=== PATIENT | female | born 1950 | race Caucasian/White ===

== ENCOUNTER → 2021-01-06 | Outpatient (CLI) | payer MEDICARE ==
--- NOTE | 2021-01-06 10:49 | BD ---
EXAMINATION TYPE: Axial Bone Density DATE OF EXAM: 01/06/2021 COMPARISON: NONE CLINICAL HISTORY: Postmenopausal female. Other disorder of bone density. Height: 5 FT 3 1/2 IN Weight: 193 FRAX RISK QUESTIONS: Alcohol (3 or more units per day): NO Family History (Parent hip fracture): YES Glucocorticoids (More than 3mos): UNSURE (Ex: prednisone, prednisolone, methylprednisolone, dexamethasone, and hydrocortisone). History of Fracture in Adulthood: NO Secondary Osteoporosis: 1. Type 1 Diabetes: NO 2. Hyperthyroidism: NO 3. Menopause before 45: NO 4. Malnutrition: NO 5. Chronic liver disease: NO Rheumatoid Arthritis: NO Current Tobacco Use: NO RISK FACTORS HISTORY OF: Surgery to Spine/Hip(right/left)/Wrist (right/left): NO Family History of Osteoporosis: NO Active: YES Diet low in dairy products/other sources of calcium: NO Postmenopausal woman: AGE 49 Take estrogen and/or progesterone medications: NO Lost more than 2 inches in height since high school: NO MEDICATIONS: Additional Medications: HYDROCHLORTHIAZIDE, LOSARTAN, MESALAMINE Additional History: EXAM MEASUREMENTS: Bone mineral densitometry was performed using the [employer] System. Bone mineral density as measured about the Lumbar spine is: ----- L1-L4(G/cm2): 1.249 T Score Values are as follows: ----- L2: -0.2 ----- L3: 1.3 ----- L4: 1.8 ----- L1-L4: 0.6 BASELINE Bone mineral density about the R hip (g/cm2): 0.895 Bone mineral density about the L hip (g/cm2): 0.986 T Score values are as follows: -----R Neck: -1.0 -----L Neck: -0.4 -----R Total: -1.1 -----L Total: -0.5 BASELINE IMPRESSION: Osteopenia (T Score between -2.5 and -1). There is slightly increased risk of fracture and the patient may be considered for treatment. Re-Screen 2-5 years. NOTE: T-SCORE=SD OF THE YOUNG ADULT MEAN.
--- NOTE | 2021-01-07 10:34 | MM ---
Reason for exam: screening (asymptomatic). Last mammogram was performed 5 years and 7 months ago. History: Patient is postmenopausal. Family history of breast cancer in mother. Took hormonal contraceptives for 7 years. Physical Findings: A clinical breast exam by your physician is recommended on an annual basis and results should be correlated with mammographic findings. MG 3D Screening Mammo W/Cad Bilateral CC and MLO view(s) were taken. Prior study comparison: June 09, 2015, mammogram, performed at [facility]. There are scattered fibroglandular densities. There is no discrete abnormality. No significant changes when compared with prior studies. ASSESSMENT: Negative, BI-RAD 1 RECOMMENDATION: Routine screening mammogram of both breasts in 1 year.
== END | disposition home or self-care (01) ==
LOC: RADMAMWWP 09:31
PROVIDERS: ATTEND Family Medicine
DX: M85.89 Other specified disorders of bone density and structure, multiple sites (principal); Z12.31 Encounter for screening mammogram for malignant neoplasm of breast; Z78.0 Asymptomatic menopausal state; Z80.3 Family history of malignant neoplasm of breast
CPT/HCPCS: 77063; 77067; 77080

== ENCOUNTER → 2022-03-08 | Outpatient (CLI) | payer MEDICARE ==
--- NOTE | 2022-03-09 08:19 | MM ---
Reason for Exam: Screening (asymptomatic). Last mammogram was performed 1 year(s) and 2 month(s) ago. Patient History: Menarche at age 14. First Full-Term at age 18. Postmenopausal. Patient used Hormonal Contraceptives for 7 years. Mother had breast cancer. Risk Values: Disha 5 year model risk: 3.0%. NCI Lifetime model risk: 8.1%. Prior Study Comparison: 03/23/1999 Bilateral Screening Mammogram, [facility]. 06/09/2015 Screening Mammogram, [facility] . 01/06/2021 Bilateral Screening Mammogram, [facility]. Tissue Density: There are scattered fibroglandular densities. Findings: Analyzed By CAD. There is no suspicious group of microcalcifications in either breast. No new suspicious mass of the left breast. 5 mm asymmetry demonstrated within the central right breast at anterior depth. Chronic nodularity within the left breast. Overall Assessment: Incomplete: need additional imaging evaluation, BI-RAD 0 Management: Diagnostic Mammogram of the right breast. A clinical breast exam by your physician is recommended on an annual basis and results should be correlated with mammographic findings. [facility] will attempt to contact patient to return for supplemental views and ultrasound if indicated. Electronically signed and approved by: Franck Navarro D.O.
== END | disposition home or self-care (01) ==
LOC: RADMAMWWP 15:02
PROVIDERS: ATTEND Family Medicine
DX: Z12.31 Encounter for screening mammogram for malignant neoplasm of breast (principal); Z78.0 Asymptomatic menopausal state; Z80.3 Family history of malignant neoplasm of breast
CPT/HCPCS: 77063; 77067

== ENCOUNTER → 2022-03-12 | Outpatient (CLI) | payer MEDICARE ==
--- NOTE | 2022-03-12 10:39 | MM ---
Reason for Exam: Additional evaluation requested from prior study. Last screening mammogram was performed less than 1 month ago. Patient History: Menarche at age 14. First Full-Term at age 18. Postmenopausal. Patient used Hormonal Contraceptives for 7 years. Mother had breast cancer. Risk Values: Disha 5 year model risk: 3.0%. NCI Lifetime model risk: 8.1%. Tissue Density: Right: There are scattered fibroglandular densities. Findings: Analyzed By CAD. Persistent 5 mm high density round mass 3 cm from the nipple. It is at anterior depth centrally on the CC view and superiorly on the MLO view. Demonstrates circumscribed origins. Overall Assessment: Incomplete: need additional imaging evaluation, BI-RAD 0 Management: Diagnostic Breast Ultrasound of the right breast. A clinical breast exam by your physician is recommended on an annual basis and results should be correlated with mammographic findings. This exam should not preclude additional follow-up of suspicious palpable abnormalities. Results were given to the patient verbally at the time of exam. Electronically signed and approved by: Franck Navarro D.O.
--- NOTE | 2022-03-12 10:55 | USB ---
Reason for Exam: Additional evaluation requested from abnormal screening. Patient History: Menarche at age 14. First Full-Term at age 18. Postmenopausal. Patient used Hormonal Contraceptives for 7 years. Mother had breast cancer. Risk Values: Disha 5 year model risk: 3.0%. NCI Lifetime model risk: 8.1%. Technique: Method: Targeted. Prior Study Comparison: 06/09/2015 Screening Mammogram, [facility] . 01/06/2021 Bilateral Screening Mammogram, [facility]. 03/08/2022 Bilateral MG 3D screening mammo w/cad, [facility]. Findings: The upper section of the breast of the right breast, the axilla of the right breast and the retroareolar of the right breast were scanned. Targeted ultrasound of the right breast at 12:00 with additional evaluation of the nipple region and axilla was performed. There is a ovoid anechoic mass with posterior acoustic enhancement in the right breast at 12:00 3 cm of the nipple measuring up to 4 mm consistent with a cyst. No internal vascularity identified.. Overall Assessment: Benign, BI-RAD 2 Management: Screening Mammogram of both breasts in 1 year. A clinical breast exam by your physician is recommended on an annual basis and results should be correlated with mammographic findings. This exam should not preclude additional follow-up of suspicious palpable abnormalities. Results were given to the patient verbally at the time of exam. Electronically signed and approved by: Franck Navarro D.O.
== END | disposition home or self-care (01) ==
LOC: RADMAMWWP 10:07
PROVIDERS: ATTEND Family Medicine
DX: R92.8 Other abnormal and inconclusive findings on diagnostic imaging of breast (principal); Z78.0 Asymptomatic menopausal state; Z80.3 Family history of malignant neoplasm of breast
CPT/HCPCS: 77065; 76642; G0279; 77061

== ENCOUNTER → 2023-04-20 | Outpatient (CLI) | payer MEDICARE ==
--- NOTE | 2023-04-21 08:43 | MM ---
Reason for Exam: Screening (asymptomatic). Last mammogram was performed 1 year(s) and 2 month(s) ago. Patient History: Menarche at age 14. First Full-Term at age 18. Postmenopausal. Patient used Hormonal Contraceptives for 7 years. Mother had breast cancer. Risk Values: Dihsa 5 year model risk: 3.0%. NCI Lifetime model risk: 7.7%. Prior Study Comparison: 01/06/2021 Bilateral Screening Mammogram, [facility]. 03/08/2022 Bilateral MG 3D screening mammo w/cad, [facility]. 03/12/2022 Right MG 3D work up w/cad RT, [facility]. Tissue Density: There are scattered fibroglandular densities. Findings: Analyzed By CAD. There is no suspicious group of microcalcifications or new suspicious mass in either breast. There is no suspicious group of microcalcifications or new suspicious mass in either breast. Asymmetric density in the upper outer of the margin left breast. Overall Assessment: Incomplete: need additional imaging evaluation, BI-RAD 0 Management: Special View Mammogram of the left breast. . Patient should continue monthly self-breast exams. A clinical breast exam by your physician is recommended on an annual basis. This exam should not preclude additional follow-up of suspicious palpable abnormalities. Note on Disha scores and lifetime risk: 1. A Disha score greater than 3% is considered moderate risk. If this is the case, consider specialist referral to assess eligibility for a risk reducing agent. 2. If overall lifetime risk for the development of breast cancer is 20% or higher, the patient may qualify for future screening with alternating mammogram and breast MRI. Electronically signed and approved by: Arturo Gonzalez M.D. Radiologis
== END | disposition home or self-care (01) ==
LOC: RADMAMWWP 14:02
PROVIDERS: ATTEND Family Medicine
DX: Z12.31 Encounter for screening mammogram for malignant neoplasm of breast (principal); Z80.3 Family history of malignant neoplasm of breast; Z78.0 Asymptomatic menopausal state
CPT/HCPCS: 77063; 77067

== ENCOUNTER → 2023-04-25 | Outpatient (CLI) | payer MEDICARE ==
--- NOTE | 2023-04-25 10:45 | MM ---
Reason for Exam: Additional evaluation requested from abnormal screening. Last screening mammogram was performed less than 1 month ago. Patient History: Menarche at age 14. First Full-Term at age 18. Postmenopausal. Patient used Hormonal Contraceptives for 7 years. Mother had breast cancer. Risk Values: Disha 5 year model risk: 3.0%. NCI Lifetime model risk: 7.7%. Prior Study Comparison: 03/08/2022 Bilateral MG 3D screening mammo w/cad, [facility]. 03/12/2022 Right MG 3D work up w/cad RT, [facility]. 04/20/2023 Bilateral MG 3D screening mammo w/cad, [facility]. Tissue Density: Left: There are scattered fibroglandular densities. Findings: Analyzed By CAD. 2-3 o'clock vague focal asymmetry measuring approximately 8 mm left breast middle depth persists on compression views. Further ultrasound evaluation recommended. Overall Assessment: Incomplete: need additional imaging evaluation, BI-RAD 0 Management: Diagnostic Breast Ultrasound of the left breast. Electronically signed and approved by: Wai Rose M.D. Radiologist
--- NOTE | 2023-04-25 11:08 | USB ---
Reason for Exam: Additional evaluation requested from abnormal screening. Patient History: Menarche at age 14. First Full-Term at age 18. Postmenopausal. Patient used Hormonal Contraceptives for 7 years. Mother had breast cancer. Risk Values: Disha 5 year model risk: 3.0%. NCI Lifetime model risk: 7.7%. Technique: Method: Targeted. Prior Study Comparison: 03/08/2022 Bilateral MG 3D screening mammo w/cad, [facility]. 03/12/2022 Right US breast workup limited RT, [facility]. 03/12/2022 Right MG 3D work up w/cad RT, [facility]. 04/20/2023 Bilateral MG 3D screening mammo w/cad, [facility]. Findings: The upper outer quadrant of the left breast, the axilla of the left breast and the retroareolar of the left breast were scanned. Targeted ultrasound left breast 1:00 to 3:00 position including scanning of the subareolar region and axilla. At the 3:00 position, 6 cm from the nipple, there is a somewhat lobulated hypoechoic area measuring 5 x 4 x 4 mm for which tissue sampling is recommended. At the 1:00 position, 7 cm from the nipple, suspect a debris-filled cyst measuring 7 x 6 x 4 mm. No other solid or cystic lesion or axillary lymphadenopathy.. Overall Assessment: Suspicious, BI-RAD 4 Management: Ultrasound Core Biopsy of the left breast. Electronically signed and approved by: Wai Rose M.D. Radiologist
== END | disposition home or self-care (01) ==
LOC: RADMAMWWP 10:14
PROVIDERS: ATTEND Family Medicine
DX: R92.8 Other abnormal and inconclusive findings on diagnostic imaging of breast (principal); Z78.0 Asymptomatic menopausal state; Z80.3 Family history of malignant neoplasm of breast
CPT/HCPCS: 77065; 76642; G0279; 77061

== ENCOUNTER → 2023-05-12 | Day surgery (SDC) | payer MEDICARE ==
--- NOTE | 2023-05-18 09:14 | MM ---
Reason for Exam: Post Procedure Mammogram. Last screening mammogram was performed less than 1 month ago. Patient History: Menarche at age 14. First Full-Term at age 18. Postmenopausal. Patient used Hormonal Contraceptives for 7 years. Mother had breast cancer. Risk Values: Disha 5 year model risk: 3.0%. NCI Lifetime model risk: 7.7%. Prior Study Comparison: 03/12/2022 Right MG 3D work up w/cad RT, [facility]. 04/20/2023 Bilateral MG 3D screening mammo w/cad, [facility]. 04/25/2023 Left MG 3D work up w/cad LT, [facility]. Tissue Density: Left: There are scattered areas of fibroglandular density. Pathology Description: Location: 3 o'clock. Marker Left Behind. Needle Type: Mammotone Cores: 4 Gauge: 13 The procedure of ultrasound guided core biopsy was explained to the patient. Benefits, alternatives, and risks were discussed. An informed consent was then obtained. The small 4 to 5 mm nodule is identified at the 3:00 position, 6 cm from the nipple, possible mammographic correlate. Currently, this appears slightly more cystic, possibly debris-filled cyst. The patient was placed in supine positioning for imaging and for the procedure. The overlying skin was prepped and draped in usual sterile fashion. Lidocaine was used as anesthetic into the skin and subcutaneous tissue up to area of concern in the 3:00 left breast. Under ultrasound guidance, a 13-gauge vacuum-assisted mammotome biopsy gun was used to obtain 4 core samples. Following this, a coil clip was left in lesion. The patient tolerated the procedure well without any immediate complication. The patient was kept in the radiology department for short stay after the procedure and then discharged home in stable condition. Postprocedure mammogram: The patient was transferred to mammography for physician ordered post procedure mammogram for clip placement verification. Post procedure mammogram shows clip located remote from the initial mammographic nodule, more in an anterior depth whereas the nodule is at the middle depth. We note that the original nodule now has a lower density appearance and is less defined favoring a benign etiology. A benign biopsy results, six-month follow-up left breast mammogram will be recommended. IMPRESSION: Successful, uncomplicated ultrasound guided core biopsy small nodule at the 3:00 left breast. Postbiopsy mammogram shows the clip to be in a different location from the originally detected mammographic nodule. Given nodule characteristics on the post biopsy mammogram, a benign etiology is favored. If benign biopsy results, six-month follow-up diagnostic left breast mammogram will be recommended. Full pathology results to follow. Pathology Results: Result: Benign, Fibrocystic change. LEFT BREAST, 3:00, ULTRASOUND GUIDED NEEDLE CORE BIOPSY: Benign breast with fibrocystic changes. Negative for neoplasm. Overall Assessment: Benign Assessment: MG diagnostic mammo LT wo CAD. - Left: Benign, BI-RAD 2. Management: Diagnostic Breast Ultrasound of the left breast in 6 months. Electronically signed and approved by: Wai Rose M.D. Radiologist
== END ==
LOC: RADUSWWP 12:40
PROVIDERS: ATTEND Family Medicine
DX: N60.12 Diffuse cystic mastopathy of left breast (principal)
CPT/HCPCS: 88305; 77065; 19083; A4648

== ENCOUNTER → 2024-05-30 | Outpatient (CLI) | payer MEDICARE ==
--- NOTE | 2024-05-30 13:52 | MM ---
Reason for Exam: Screening (asymptomatic). Last mammogram was performed 1 year(s) and 1 month(s) ago. Patient History: Menarche at age 14. First Full-Term at age 18. Postmenopausal. Patient used Hormonal Contraceptives for 7 years. 05/12/2023, Benign US biopsy breast VAD LT on the left side. Mother had breast cancer. Risk Values: Disha 5 year model risk: 3.5%. NCI Lifetime model risk: 8.5%. Prior Study Comparison: 04/20/2023 Bilateral MG 3D screening mammo w/cad, [facility]. 04/25/2023 Left MG 3D work up w/cad LT, [facility]. 05/12/2023 Left MG diagnostic mammo LT wo CAD., [facility]. Tissue Density: There are scattered areas of fibroglandular density. Findings: Analyzed By CAD. Mammotome biopsy clip left breast is now present. Some stable nodularity left breast. Benign-appearing left axillary lymph nodes are redemonstrated. There is no suspicious new group of microcalcifications or new suspicious mass in either breast. Overall Assessment: Benign, BI-RAD 2 Management: Screening Mammogram of both breasts in 1 year. . Patient should continue monthly self-breast exams. A clinical breast exam by your physician is recommended on an annual basis. This exam should not preclude additional follow-up of suspicious palpable abnormalities. Note on Disha scores and lifetime risk: 1. A Disha score greater than 3% is considered moderate risk. If this is the case, consider specialist referral to assess eligibility for a risk reducing agent. 2. If overall lifetime risk for the development of breast cancer is 20% or higher, the patient may qualify for future screening with alternating mammogram and breast MRI. [facility], , 05/30/2024 1:49 PM. Electronically signed and approved by: Arsalan Madison M.D.
== END | disposition home or self-care (01) ==
LOC: RADMAMWWP 13:27
PROVIDERS: ATTEND Family Medicine
DX: Z12.31 Encounter for screening mammogram for malignant neoplasm of breast (principal); R92.323 Mammographic fibroglandular density, bilateral breasts; Z78.0 Asymptomatic menopausal state; Z80.3 Family history of malignant neoplasm of breast; Z92.0 Personal history of contraception
CPT/HCPCS: 77063; 77067